=== PATIENT | female | born 1950 | race Caucasian/White ===

== ENCOUNTER 2016-10-05 21:32 | Emergency (ER) | payer MEDICARE, MEDICAID ==
[~2016-10-05] VITALS: Ht 165.1 cm; Wt 76.2 kg
[2016-10-05 21:35] VITALS: BP 168/87
[2016-10-05] MEDS ORDERED: LISINOPRIL5 MG ORAL (21:35)
[2016-10-05] MEDS ORDERED: ELIQUIS2.5 MG PO (21:35)
[2016-10-05] MEDS ORDERED: CRESTOR10 M2 ORAL (21:35)
[2016-10-05] MEDS ORDERED: PROZAC10 MG ORAL (21:35)
--- NOTE | 2016-10-05 21:41 | Emergency Room Report ---
History of Present Illness General Chief Complaint: Generalized Weakness Source: Patient Present Illness HPI Is a 66-year-old female with history of hypertension and recent CVA. She has a history of a PFO that her doctor thought cause an embolic CVA. This occurred couple weeks ago at [place]. She has no residual effect except for slight numbness in the left index finger and of lip area. As a result of her CVA, she is on Elequis. Since then however she's been getting anxiety attack. She would get very anxious and her blood pressure and which showed up. She denies suicidal thought or homicidal thought. Tonight she was at a restaurant and very anxious. Her blood pressure was elevated systolic in the 190-200. She took an extra 2.5 mg of lisinopril. She said she felt weak but better now since she is here. No fever chills but no nausea no vomiting. This has been a reoccurrence since her CVA. Denies any chest pain or focal deficit. No sore speech. Allergies: Coded Allergies: ACETAMINOPHEN (Verified Allergy, Unknown, 10/05/16) HYDROCODONE (Verified Allergy, Unknown, 10/05/16) Patient History Past Medical History: see triage record, old chart reviewed, HTN, CVA/TIA Past Surgical History: other Pertinent Family History: none Social History: Denies: smoking Now: No Immunizations: other Reviewed Nursing Documentation: PMH: Agreed, PSxH: Agreed Nursing Documentation-PM Hx Hypertension: Yes Review of Systems Constitutional: Reports: weakness Eye: Denies: blurred vision, eye pain ENT: Denies: ear pain, nose congestion, throat swelling Respiratory: Denies: cough, shortness of breath Cardiovascular: Denies: chest pain, palpitations Gastrointestinal: Denies: abdominal pain, diarrhea, nausea, vomiting Musculoskeletal: Denies: back pain, joint pain Skin: Denies: rash Neurological: Denies: headache, numbness Endocrine: Denies: increased thirst, increased urine Hematologic/Lymphatic: Denies: easy bruising All Other Systems: negative except mentioned in HPI Physical Exam Vital Signs Date Time Temp Pulse Resp B/P Pulse Ox O2 Delivery O2 Flow Rate FiO2 10/05/16 21:24 98.1 64 18 168/87 100 Room Air vitals with hypertension Sp02 EP Interpretation: reviewed, normal General Appearance: well appearing, no apparent distress, alert Head: normocephalic, atraumatic Eyes: bilateral eye EOMI, bilateral eye PERRL ENT: hearing grossly normal, normal pharynx Neck: full range of motion, supple, no meningismus Respiratory: chest non-tender, lungs clear, normal breath sounds Cardiovascular #1: regular rate, rhythm, no murmur Gastrointestinal: normal bowel sounds, non tender, no mass, no organomegaly, no bruit, non-distended Musculoskeletal: back normal, gait/station normal, normal range of motion Psychiatric: anxious Skin: warm/dry Medical Decision Making Diagnostic Impression: Primary Impression: Panic anxiety syndrome Additional Impression: UTI (urinary tract infection) Qualified Codes: N30.00 - Acute cystitis without hematuria ER Course Patient with anxiety and very good health issue. Blood pressures coming down with treatment of her anxiety. She felt better now. No focal deficit to indicate TIA or CVA. I see no need for repeat CT scan. Labs unremarkable. We' ll discharge home with reassurance. Lab Results Impression labs unremarkable EKG Diagnostic Results Rate: normal Rhythm: NSR ST Segments: no acute changes Rhythm Strip Diag. Results EP Interpretation: yes Rate: 66 Rhythm: NSR, no PVC's, no ectopy Chest X-Ray Diagnostic Results EP Interpretation: Yes Findings: no consolidation, no effusion, no pneumothorax, no acute cardiopulmonary disease Number of Views: 1 Last Vital Signs Date Time Temp Pulse Resp B/P Pulse Ox O2 Delivery O2 Flow Rate FiO2 10/05/16 21:24 98.1 64 18 168/87 100 Room Air Status: improved Disposition: HOME, SELF-CARE Condition: Stable Scripts Cephalexin* (KEFLEX*) 500 Mg Capsule 500 MG ORAL TID, #21 CAP 0 Refills Prov: SYLVAIN SANTORO M.D. 10/05/16 Additional Instructions: Followup your DrLauren in 7 days. Return if symptom worsen. SYLVAIN SANTORO M.D. October 05, 2016 21:41
[2016-10-05] MEDS ORDERED: LORazepam Inj 2mg/ml 1ml IV ONE (21:45)
[2016-10-05 22:15] LABS: APPEARANCE,URINE CLEAR; KETONES,URINE NEGATIVE (NEGATIVE); LEUKOCYTE ESTERASE ,URINE 1+ (NEGATIVE); NITRITE,URINE NEGATIVE (NEGATIVE); PH,URINE 6.5 (4.5-8.0); PROTEIN,URINE NEGATIVE (NEGATIVE); UROBILINOGEN,URINE NORMAL MG/DL (0.0-1.0)
[2016-10-05 22:20] LABS: BACTERIA,URINE MODERATE /HPF; SQUAMOUS EPITHELIAL CELL,UR FEW /LPF (NONE/OCC)
[2016-10-05 22:29] LABS: BASOPHILS % (AUTO) 0.8 % (0.0-2.0); EOSINOPHILS % (AUTO) 0.5 % (0.0-3.0); LYMPHOCYTES % (AUTO) 28.3 % (20.0-45.0); MEAN CORPUSCULAR HGB CONC 34.8 G/DL (32.0-36.0); MEAN CORPUSCULAR VOLUME 98 FL (80-99); MEAN PLATELET VOLUME 7.2 FL (6.5-10.1); MONOCYTES % (AUTO) 6.6 % (1.0-10.0); NEUTROPHILS % (AUTO) 63.7 % (45.0-75.0); PLATELET COUNT 176 K/UL (150-450); RED BLOOD COUNT 4.23 M/UL (4.20-5.40); RED CELL DISTRIBUTION WIDTH 11.1 % (11.6-14.8); WHITE BLOOD COUNT 6.4 K/UL (4.8-10.8)
[2016-10-05] MEDS ORDERED: cefTRIAXone 1 GM in NS 55 ML IVPB ONE (22:30)
[2016-10-05 22:35] LABS: ANION GAP 17 (5-15); CARBON DIOXIDE 24 mEQ/L (20-30); CHLORIDE 103 mEQ/L (98-107); CREATININE 0.7 mg/dL (0.5-0.9); GLOMERULAR FILTRATION RATE > 60 mL/min (>60); HEMOLYSIS 8; POTASSIUM 3.8 mEQ/L (3.4-4.9); SODIUM 144 mEQ/L (135-145)
[2016-10-05 22:36] LABS: TROPONIN I < 0.30 ng/mL (<=0.30)
[2016-10-05] MEDS ORDERED: KEFLEX500 MG ORAL (22:48)
[2016-10-05 23:28] VITALS: BP 130/71
== END 2016-10-05 23:28 | disposition home or self-care (01) ==
LOC: EDBD 21:32 → EMR 21:40
DX: F41.0 Panic disorder [episodic paroxysmal anxiety] (principal); N30.00 Acute cystitis without hematuria; Z86.73 Personal history of transient ischemic attack (TIA), and cerebral infarction without residual deficits; Z79.01 Long term (current) use of anticoagulants; Z88.6 Allergy status to analgesic agent; I10 Essential (primary) hypertension
CPT/HCPCS: 36415; 80048; 81003; 84484; 85025; 87086; 93005; 96374; 96375; 99284; J0696